=== PATIENT | female | born 1995 | race African-American/Black ===

== ENCOUNTER 2017-04-19 09:23 | Inpatient (IN) | payer OTHER ==
[2017-04-18 13:23] VITALS: BMI 44.5
[2017-04-19] MEDS ORDERED: BUPIVACAINE HCL/PF 0.5% (5MG/ML) 10 ML VIAL ONE (13:43)
[2017-04-19] MEDS ORDERED: ceFAZolin SODIUM 1 GM VIAL IVPB ONE (14:50)
[2017-04-19] MEDS ORDERED: ceFAZolin SODIUM 1 GM VIAL ONE (15:01)
[2017-04-19] MEDS ORDERED: ONDANSETRON 4 MG/2 ML VIAL IVPB PRN (16:12)
[2017-04-19] MEDS ORDERED: SODIUM CHLORIDE 1,000 ML IV SCH (16:15)
[2017-04-19 16:54] LABS: MCHC 33.3 g/dl (32.0-36.0); MEAN CELL VOLUME 78.1 fl (80-96); MEAN PLT VOLUME 6.8 fl (7.5-11.1); PLATELET COUNT 406 K/MM3 (134-434); RDW 13.4 % (11.6-15.6); WHITE BLOOD COUNT 11.2 K/mm3 (4.0-10.0)
[2017-04-19 17:26] LABS: ALBUMIN 3.8 g/dl (3.4-5.0); ANION GAP 8 (8-16); BILIRUBIN,TOTAL 0.3 mg/dL (0.2-1.0); CO2 27 mmol/L (21-32); CREATININE 0.9 mg/dL (0.55-1.02); GLUCOSE,RANDOM 135 mg/dL (74-106); SGOT/AST 16 U/L (15-37); SGPT/ALT 24 U/L (12-78); TOT PROT 7.6 g/dl (6.4-8.2)
[2017-04-19 17:27] LABS: ALK PHOS 70 U/L (45-117)
[2017-04-19] MEDS ORDERED: METOCLOPRAMIDE HCL INJECTION 10 MG/2 ML VIAL ONE (17:31)
[2017-04-19] MEDS: METOCLOPRAMIDE HCL INJECTION 10 MG/2 ML VIAL IVPB PRN (17:37)
[2017-04-19] MEDS ORDERED: HYDROmorphone HCL CARPU-JECT 2 MG/1 ML DISP.SYRIN ONE (18:44)
[2017-04-19] MEDS: HYDROmorphone HCL CARPU-JECT 1 MG/1 ML DISP.SYRIN IVPB PRN ×2 (18:45→22:39)
[2017-04-19] MEDS ORDERED: LACTATED RINGERS SOLUTION 1,000 ML IV SCH (20:45)
[2017-04-19] MEDS: FAMOTIDINE 20 MG/50 ML IVPB 50 ML IVPB SCH (21:19)
[2017-04-19] MEDS: ENOXAPARIN NA (PORCINE) 40 MG/0.4 ML DISP.SYRIN SQ SCH (21:22)
--- NOTE | 2017-04-19 23:40 | OP ---
DATE OF OPERATION: 04/19/2017 PREOPERATIVE DIAGNOSIS: Morbid obesity. POSTOPERATIVE DIAGNOSIS: Morbid obesity. PROCEDURE PERFORMED: 1. Laparoscopic vertical sleeve gastrectomy. 2. Diagnostic laparoscopy. OPERATING SURGEON: Juanjose Carlos M.D. MUD GRINDER SURGEON: Moose Pepper M.D. ANESTHESIA: General. OPERATIVE PROCEDURE: The patient was brought into the operating room, placed on the OR table in the supine position. All precautions were taken initially including padding for the back and the feet, and Venodyne boots were placed on both lower extremities. At that point, the abdomen was prepped and draped in the usual manner. A Veress needle was placed in the left upper quadrant, and a pneumoperitoneum was established. A number 12 bladeless trocar was placed in the left upper quadrant through the trocar, laparoscopic camera was placed. Under direct vision, a number 15 bladeless trocar was placed just to the right of the midline and slightly above the umbilicus. This was followed by a number 5 bladeless trocar in the right upper quadrant and number 5 bladeless trocar below the left costal margin. A Renata liver retractor was then placed in the epigastrium to retract the left lobe of the liver. The patient was then placed in 20-degree reverse Trendelenburg position. The pylorus was noted on the distal stomach, and from that point 6 cm were measured proximally. Here on the greater curvature, as the operating surgeon lifted the stomach toward the anterior abdominal wall, the acute care certified nursing assistant surgeon retracted the gastrocolic ligament inferiorly. The Ligasure device used to dissect the gastrocolic ligament off the greater curve of the stomach. This continued in a superior and vertical direction taking the short gastric vessels were divided along the greater curve, until the final short gastric vessel between the superior pole of the spleen and the proximal fundus was divided. At this point, the bougie, which was a number 40 in size, had been in place by anesthesia, was now advanced all the way down toward the pylorus. With the bougie held along the lesser curvature, a series of godfrey were performed with the first 2 being black load godfrey 6 cm in length along the bougie. This was followed by a series of purple load godfrey along the bougie, and continuing until final staple was fired in the left upper quadrant and the greater curve was now completely detached from the lesser curve. It should be noted that prior to firing godfrey, both the anterior and posterior lyons were checked that they were equal and intact, and the area of the esophagogastric junction approximately 1 to 1.5 cm serosa remained on the anterior and posterior surface. At this point, saline was placed around the staple line, anesthesia inserted air into the bougie which showed the entire stomach distended down to the pylorus. No obstruction and no leaks were noted. At this point the bougie was then removed by anesthesia, and under direct vision the number 15 and number 12 trocar sites were closed with Endoclose device to prevent internal hernia and prevent bleeding. Under direct vision, all trocars were removed and pneumoperitoneum released. All trocar sites injected with 0.25% Marcaine, and they were all closed with 4-0 Biosyn subcuticular fashion, except for the number 15 site, which first was closed with 3-0 Vicryl and subcutaneous tissue followed by 4-0 Biosyn subcuticular fashion. Dressings were applied, patient awoken from anesthesia and transferred out of the operation room to the recovery room in stable condition. ESTIMATED BLOOD LOSS: 30 mL. Patient transferred to recovery room in stable condition. Veronica [id number]
[2017-04-20] MEDS: METOCLOPRAMIDE HCL INJECTION 10 MG/2 ML VIAL IVPB PRN (02:45)
[2017-04-20 07:58] LABS: MCH 25.8 pg (25.7-33.7); MCHC 33.3 g/dl (32.0-36.0); MEAN CELL VOLUME 77.7 fl (80-96); MEAN PLT VOLUME 6.4 fl (7.5-11.1); PLATELET COUNT 316 K/MM3 (134-434); RDW 13.3 % (11.6-15.6); WHITE BLOOD COUNT 12.1 K/mm3 (4.0-10.0)
[2017-04-20] MEDS: HYDROmorphone HCL CARPU-JECT 1 MG/1 ML DISP.SYRIN IVPB PRN (08:13)
[2017-04-20 08:24] LABS: ALBUMIN 3.6 g/dl (3.4-5.0); ANION GAP 7 (8-16); BILIRUBIN,TOTAL 0.4 mg/dL (0.2-1.0); CALCIUM 8.8 mg/dL (8.5-10.1); CO2 30 mmol/L (21-32); CREATININE 0.8 mg/dL (0.55-1.02); GLUCOSE,RANDOM 124 mg/dL (74-106); SGOT/AST 20 U/L (15-37); SGPT/ALT 22 U/L (12-78)
[2017-04-20 08:25] LABS: ALK PHOS 62 U/L (45-117); TOT PROT 6.9 g/dl (6.4-8.2)
[2017-04-20] MEDS: ENOXAPARIN NA (PORCINE) 40 MG/0.4 ML DISP.SYRIN SQ SCH (10:07)
[2017-04-20] MEDS: FAMOTIDINE 20 MG/50 ML IVPB 50 ML IVPB SCH (10:07)
--- NOTE | 2017-04-20 13:16 | PN ---
Progress Note (short form) - Note Progress Note: POD#1 Afebrile; VSS P-66-90 BP_118/74 Pt doing well NO Nausea/Vomiting OOB with no difficulties UGI-no leak, no obstruction Tolerating sips of water WBC- 12.1 H/H-12.6/37.9 P- PO clear liquids - 3OZ PO TID Cont DVT prophylaxis Encourage ambulation D/C patient home today
[2017-04-20] MEDS ORDERED: oxyCODONE HCL 5 MG TABLET PO PRN (13:29)
[2017-04-20] MEDS ORDERED: ACETAMINOPHEN 325 MG TABLET (FP) PO PRN (13:29)
[2017-04-20 15:06] VITALS: BP 141/79; PULSE 74; TEMP 99.1
--- NOTE | 2017-04-20 17:21 | PN ---
Progress Note (short form) - Note Progress Note: Anesthesia postop note 22 y/o F s/p GA for gastric sleeve POD#1 vss, aaox3, pain well controlled, no complaints. No anesthesia complications.
--- NOTE | 2017-04-24 12:45 | PATH ---
Surgical Pathology Report Patient Name: RBUY ARMENTA Med. Rec. #: [id number] /Age/Gender: 1995 (Age: 22) / F Account: [id number] Location: 4 W TELEMETRY U Taken: 04/19/2017 Received: 04/20/2017 Reported: 04/24/2017 Physicians: Juanjose Carlos M.D. Specimen(s) Received GREATER CURVATURE OF STOMACH Clinical History Morbid obesity Final Diagnosis STOMACH, GREATER CURVATURE, LAPAROSCOPIC VERTICAL SLEEVE GASTRECTOMY: PORTION OF STOMACH WITH MILD CHRONIC GASTRITIS. IMMUNOSTAIN FOR H. PYLORI IS NEGATIVE FOR ORGANISMS. Electronically Signed Jad Gary M.D. Gross Description Received in formalin, labeled "greater curvature of stomach" is a 119 gram, 19.5 x 5.0 x 3.5 cm portion of stomach with a stapled margin of resection. The serosa is andrew-phelps with minimal attached fat. The mucosa is andrew-pink with focally flattened folds. No mucosal masses are identified. Associate Professor Of Psychology sections are submitted in one cassette. /04/20/2017 saudi04/20/2017
== END 2017-04-20 16:00 | disposition home or self-care (01) | DRG 621 ==
LOC: JSAMEDAYSX 09:23 → EDSTATUS 14:30 → J4W 20:06
PROVIDERS: ADMIT Surgery; ATTEND Surgery
PROC: 0DB64Z3 Excision of Stomach, Percutaneous Endoscopic Approach, Vertical (ICD-10-PCS; principal; 2017-04-19 11:30)
DX: E66.01 Morbid (severe) obesity due to excess calories (principal); Z68.41 Body mass index [BMI] 40.0-44.9, adult
CPT/HCPCS: 36415; 74241-TC; 80053; 85027; 88305-TC; 94010; 94760